=== PATIENT | female | born 1985 | race Caucasian/White ===

== ENCOUNTER 2016-10-13 07:11 | Emergency (ER) | payer BC, OTHER ==
[2016-10-13 07:28] VITALS: BP 120/71
[2016-10-13] MEDS ORDERED: Ketorolac 60 MG/2 ML SDV IM ONE (07:58)
[2016-10-13] MEDS ORDERED: Diazepam 5 MG Tab PO ONE (07:58)
--- NOTE | 2016-10-13 08:04 | EDM.PDOC ---
ED HPI GENERAL MEDICAL PROBLEM - General Chief Complaint: Back Pain or Injury Stated Complaint: low back pain Time Seen by Provider: 10/13/16 07:57 Source of Information: Reports: Patient History Limitations: Reports: No Limitations - History of Present Illness INITIAL COMMENTS - FREE TEXT/NARRATIVE: PT STATES SHE INITIALLY BENT OVER TO [employer]AY GUN[employer] OBJECT AND FELT TWINGE IN LEFT LOWER BACK. SHORT TIME LATER SHE WAS MOVING PT AND BACK BEGAN TO SPASM. DENIES CP, SOB, FEVER, FLANK PAIN, ABD PAIN, SADDLE ANESTHESIA, BOWEL OR URINARY CONT. Onset: Today Duration: Hour(s): Location: Reports: Back Quality: Reports: Ache, Other (SPASM) Improves with: Reports: None Worsens with: Reports: Movement Context: Reports: Lifting Associated Symptoms: Reports: No Other Symptoms. 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: Psychiatric History: Reports: Anxiety, Depression - Past Surgical History HEENT Surgical History: Reports: Tonsillectomy Social & Family History - Tobacco Use Smoking Status *Q: Current Every Day Smoker Years of Tobacco use: 11 Packs/Tins Daily: 0.5 Used Tobacco, but Quit: No Second Hand Smoke Exposure: No - Caffeine Use Caffeine Use: Reports: Coffee - Alcohol Use Days Per Week of Alcohol Use: 1 Number of Drinks Per Day: 1 Total Drinks Per Week: 1 - Recreational Drug Use Recreational Drug Use: No ED ROS GENERAL - Review of Systems Review Of Systems: ROS reveals no pertinent complaints other than HPI. Constitutional: Reports: No Symptoms HEENT: Reports: No Symptoms Respiratory: Reports: No Symptoms Cardiovascular: Reports: No Symptoms Endocrine: Reports: No Symptoms GI/Abdominal: Reports: No Symptoms : Reports: No Symptoms Musculoskeletal: Reports: Back Pain Skin: Reports: No Symptoms Neurological: Reports: No Symptoms Psychiatric: Reports: No Symptoms Hematologic/Lymphatic: Reports: No Symptoms Immunologic: Reports: No Symptoms ED EXAM,LOWER BACK PAIN/INJURY - Physical Exam Exam: See Below Exam Limited By: No Limitations General Appearance: Alert, WD/WN, No Apparent Distress Throat/Mouth: Normal Inspection, Normal Oropharynx, No Airway Compromise Neck: Normal Inspection, Supple, Non-Tender Respiratory/Chest: No Respiratory Distress, Lungs Clear, Normal Breath Sounds Cardiovascular: Regular Rate, Rhythm, No Murmur GI/Abdominal: Normal Bowel Sounds, Soft, Non-Tender, No Organomegaly, No Distention, No Abnormal Bruit, No Mass Back Exam: Paraspinal Tenderness (LEFT). No: CVA Tenderness (L), CVA Tenderness (R), Vertebral Tenderness Extremities: Normal Inspection, Normal Range of Motion, No Pedal Edema Neurological: Alert, Normal Mood/Affect, Normal Dorsiflexion, Normal Plantar Flexion, No Motor/Sensory Deficits, Oriented x 3 Psychiatric: Normal Affect, Normal Mood Skin Exam: Warm, Dry, Intact, Normal Color, No Rash Lymphatic: No Adenopathy Course - Vital Signs Last Recorded V/S: Last Vital Signs Temp 98.2 F 10/13/16 07:20 Pulse 85 10/13/16 07:20 Resp 18 10/13/16 07:20 BP 120/71 10/13/16 07:20 Pulse Ox 98 10/13/16 07:20 - Orders/Labs/Meds Orders: Active Orders 24 hr Category Date Time Status Diazepam [Valium] Med 10/13/16 07:58 Once 5 mg PO ONETIME ONE Ketorolac [Toradol] Med 10/13/16 07:58 Once 60 mg IM ONETIME ONE - Re-Assessments/Exams Free Text/Narrative Re-Assessment/Exam: 10/13/16 08:34 PT AFEBRILE, NONTOXIC APPEARING, VSS, PAIN SUBSIDED. WILL F/U WITH PCP Departure - Departure Time of Disposition: 08:35 Disposition: Home, Self-Care 01 Condition: Good Clinical Impression: Acute lumbar myofascial strain Qualifiers: Encounter type: subsequent encounter Qualified Code(s): S39.012D - Strain of muscle, fascia and tendon of lower back, subsequent encounter - Discharge Information Instructions: Back Injury Prevention, [id number], Muscle Strain, [id number] , Back Pain, Adult, [id number], Chronic Back Pain Forms: ED Department Discharge Additional Instructions: FOLLOW UP WITH PCP FOR WORK LIMITATION DETERMINATION - My Orders Last 24 Hours: My Active Orders 10/13/16 07:58 Diazepam [Valium] 5 mg PO ONETIME ONE Ketorolac [Toradol] 60 mg IM ONETIME ONE - Assessment/Plan Last 24 Hours: My Active Orders 10/13/16 07:58 Diazepam [Valium] 5 mg PO ONETIME ONE Ketorolac [Toradol] 60 mg IM ONETIME ONE Assessment:: LOW BACK PAIN Plan: F/U WITH PCP
[2016-10-13] MEDS ORDERED: Acetaminophen/oxyCODONE 325-5 MG Tab PO ONE (11:11)
== END 2016-10-13 08:40 | disposition home or self-care (01) ==
LOC: KA.ED 07:11
DX: S39.012A Strain of muscle, fascia and tendon of lower back, initial encounter (principal); F41.9 Anxiety disorder, unspecified; F32.9 Major depressive disorder, single episode, unspecified; F17.210 Nicotine dependence, cigarettes, uncomplicated; Z90.89 Acquired absence of other organs; Z79.899 Other long term (current) drug therapy; X50.1XXA Overexertion from prolonged static or awkward postures, initial encounter
CPT/HCPCS: 96372; 99283; A9270; J1885

== ENCOUNTER 2017-02-12 15:05 | Emergency (ER) | payer BC ==
[2017-02-12 15:14] VITALS: BP 130/68
--- NOTE | 2017-02-12 16:00 | EDM.PDOC ---
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 She says she has been soaking a large pad every 30-60 minutes for 3 days. She has felt a little lightheaded occasionally the last two days and some tingling around her lips. Not lightheaded when she stands up or walks. No history of anemia, coagulopathies, blood thinners. Two weeks ago she had an endometrial biopsy by Yareli Abreu MD at [facility], for heavy menstrual bleeding and low abdominal pain. She had an US also. Biopsy was okay and US showed larger than normal ovaries she tells me. She called them today to ask about her heavy bleeding again and she was told to come to ER. She had similar heavy bleeding 3 months ago. No history of kidney problems or significant UTIs. Head Pain Score (Numeric/FACES): 2 - Related Data Allergies Allergy/AdvReac Type Severity Reaction Status Date / Time No Known Allergies Allergy Verified 02/12/17 15:12 Home Meds: Home Meds DULoxetine HCl [Duloxetine HCl] 30 mg PO DAILY 10/13/16 [History] lamoTRIgine [Lamotrigine] 100 mg PO DAILY 10/13/16 [History] ALPRAZolam [Alprazolam] 02/12/17 [History] Norgestimate-Ethinyl Estradiol [Previfem Tablet] 1 tab PO DAILY 02/12/17 [ History] busPIRone [Buspar] 10 mg PO 02/12/17 [History] Past Medical History - Past Health History Medical/Surgical History: Denies Medical/Surgical History HEENT History: Reports: None 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: Psychiatric History: Reports: Anxiety, Depression - Infectious Disease History Infectious Disease History: Reports: Chicken Pox - Past Surgical History HEENT Surgical History: Reports: Tonsillectomy Female Surgical History: Reports: Other (See Below) Other Female Surgeries/Procedures: Endometriosis biopsy Social & Family History - Tobacco Use Smoking Status *Q: Current Some Day Smoker Years of Tobacco use: 10 Packs/Tins Daily: 0.1 Used Tobacco, but Quit: No Second Hand Smoke Exposure: No - Caffeine Use Caffeine Use: Reports: Coffee - Alcohol Use Days Per Week of Alcohol Use: 1 Number of Drinks Per Day: 1 Total Drinks Per Week: 1 - Recreational Drug Use Recreational Drug Use: No ED ROS GENERAL - Review of Systems Review Of Systems: See Below Constitutional: Denies: Fever, Chills, Malaise, Weakness HEENT: Reports: No Symptoms Respiratory: Denies: Shortness of Breath, Cough Cardiovascular: Reports: Lightheadedness (a little last couple days, noticed with sitting but not with standing up.). Denies: Chest Pain, Syncope Endocrine: Reports: No Symptoms GI/Abdominal: Reports: Abdominal Pain (low abdomen to right of navel that is fairly chronic), Diarrhea (with IBS). Denies: Nausea, Vomiting : Denies: Dysuria, Flank Pain, Frequency Musculoskeletal: Reports: No Symptoms Skin: Denies: Cyanosis, Jaundice, Mottled, Pallor, Diaphoresis Neurological: Denies: Confusion, Seizure, Syncope, Trouble Speaking, Difficulty Walking Psychiatric: Denies: Agitation, Anxiety, Confusion ED EXAM, RENAL/ - Physical Exam Exam: See Below Exam Limited By: No Limitations General Appearance: Alert, WD/WN, No Apparent Distress Eye Exam: Bilateral Eye: EOMI, Normal Inspection (lower lid conjunctiva mildly pale subjectively), PERRL Ears: Normal External Exam, Hearing Grossly Normal Nose: Normal Inspection, Normal Mucosa, No Blood Throat/Mouth: Normal Lips, Normal Teeth, Normal Voice, No Airway Compromise Head: Atraumatic, Normocephalic Neck: Normal Inspection, Full Range of Motion Respiratory/Chest: No Respiratory Distress, Lungs Clear, Normal Breath Sounds, No Accessory Muscle Use Cardiovascular: Normal Peripheral Pulses (2+ at radial and post tib bilat), Regular Rate, Rhythm, No Edema, No Gallop, No Murmur GI/Abdominal: Normal Bowel Sounds, Soft, No Organomegaly, No Distention, No Abnormal Bruit, No Mass, Tender (mildly to right of umbilicus) Back Exam: Normal Inspection, Full Range of Motion. No: CVA Tenderness (L), CVA Tenderness (R) Extremities: Normal Inspection, Normal Range of Motion, Non-Tender, No Pedal Edema Neurological: Alert, Oriented, Normal Cognition, No Motor/Sensory Deficits Psychiatric: Normal Affect, Normal Mood Skin Exam: Warm, Dry, Intact, Normal Color, No Rash, Other (palmar skin folds are pink on exam) Course - Vital Signs Last Recorded V/S: Last Vital Signs Temp 97.7 F 02/12/17 15:13 Pulse 95 02/12/17 15:13 Resp 20 02/12/17 15:13 BP 130/68 02/12/17 15:13 Pulse Ox 97 02/12/17 15:13 - Orders/Labs/Meds Labs: Laboratory Tests 02/12/17 02/12/17 Range/Units 15:40 15:40 WBC 9.4 (5.0-10.0) 10^3/uL RBC 4.31 (3.80-5.50) 10^6/uL Hgb 12.7 (12.0-16.0) g/dL Hct 37.6 (37.0-47.0) % MCV 87.4 (82.0-92.0) fL MCH 29.5 (27.0-31.0) pg MCHC 33.8 (32.0-36.0) g/dL RDW 12.4 (11.5-14.5) % Plt Count 223 (150-300) 10^3/uL MPV 8.5 (7.4-10.4) fL Neut % (Auto) 65.1 (50.0-70.0) % Lymph % (Auto) 26.8 (20.0-40.0) % [place] % (Auto) 6.1 (2.0-8.0) % Eos % (Auto) 0.9 L (1.0-3.0) % Baso % (Auto) 1.1 H (0.0-1.0) % Neut # (Auto) 6.1 (2.5-7.0) 10^3/uL Lymph # (Auto) 2.5 (1.0-4.0) 10^3/uL [place] # (Auto) 0.6 (0.1-0.8) 10^3/uL Eos # (Auto) 0.1 (0.1-0.3) 10^3/uL Baso # (Auto) 0.1 (0.0-0.1) 10^3/uL PT 9.5 (8.9-11.4) SEC INR 0.9 (0.9-1.1) APTT 24.1 (20.8-31.2) SEC - Re-Assessments/Exams Free Text/Narrative Re-Assessment/Exam: 02/12/17 17:09 Hemoglobin is 12.7. CBC and coags are completely normal. Discussed findings with patient and called Yareli Abreu, Nurse/Liquid Sugar Fortifier at [facility] in [place] who did the endometrial biopsy two weeks ago. She recommends that pt take two tablets daily of her OCP until the bleeding completely stops, up to a week but to call her if it hasn't stopped by then. She also wants to see her in two weeks. Discussed plan with patient and she is discharged in stable condition. Departure - Departure Time of Disposition: 17:04 Disposition: Home, Self-Care 01 Condition: Good Clinical Impression: Vaginal bleeding - Discharge Information Referrals: Kimberli Schultz PA-C [Primary Care Provider] - Forms: ED Department Discharge Additional Instructions: 1. Take two tablets of your oral contraceptive (Previfem) daily until your bleeding completely stops. If it hasn't stopped in one week call Yareli Abreu at [facility] at the number you have for them. 2. Make an appointment to see Yareli Abreu in two weeks even if this has resolved. 3. If you become weak or faint with standing and pale go to ER.
== END 2017-02-12 17:15 | disposition home or self-care (01) ==
LOC: KA.ED 15:05
DX: N93.9 Abnormal uterine and vaginal bleeding, unspecified (principal); F17.210 Nicotine dependence, cigarettes, uncomplicated; Z79.899 Other long term (current) drug therapy
CPT/HCPCS: 36415; 85025; 85610; 85730; 99284